=== PATIENT | female | born 1960 | race African-American/Black ===

== ENCOUNTER 2024-07-11 10:05 | Emergency (ER) | payer OTHER, SELFPAY ==
--- NOTE | ~2024-07-11 | XR_ITS ---
EXAMINATION: XR chest 2V DATE: 07/11/2024 10:48 INDICATION: Cough and shortness of breath. Rib pain. Back pain. TECHNIQUE: Frontal and lateral views of the chest were obtained. COMPARISON: None. FINDINGS: There is no pneumonia, pleural effusion, or pneumothorax. Cardiomegaly is noted. IMPRESSION: 1. Cardiomegaly. Reviewed, dictated and finalized at location A. [facility] [employer] [facility] IMPRESSION: 1. Cardiomegaly.
[2024-07-11 10:17] VITALS: BP 110/67; PULSE 84; RESP 16; TEMP 36.6; O2SAT 95
--- NOTE | 2024-07-11 11:05 | ED.URI ---
HPI - URI/Sore Throat General Chief Complaint: Upper Respiratory Infection Stated Complaint: COUGH/RIB & BACK PAIN Time Seen by Provider: 07/11/24 10:25 Source: patient Mode of arrival: ambulatory Limitations: no limitations History of Present Illness HPI Narrative: Gricelda is a 63-year-old female patient presenting to the clinic today with complaints of cough, shortness of breath, bilateral rib, and bilateral back pain that started 3-4 days ago. Has gradually gotten worse since last night. States this feels a lot like when she had pneumonia last August. MD elicited complaint: sore throat and nasal congestion Related Data Home Medications ?Medication ?Instructions ?Recorded ?Confirmed ?Last Taken ?Type losartan 100 tablet 07/11/24 Unknown History mg-hydrochlorothiazide 25 mg tablet Allergies Allergy/AdvReac Type Severity Reaction Status Date / Time Penicillins Allergy Intermediate swollen Verified 07/11/24 10:13 Review of Systems Review of Systems: Pertinent positives per HPI. Patient denies any fever, chills, rash, headache, visual changes, dizziness, chest pain, palpitations, nausea, vomiting, diarrhea, constipation, abdominal pain, or any urinary issues. PMFSH Comments At the time of my signature, I reviewed and agree with the nursing past medical, surgical, social, and family history. There is no relevant family history pertinent to the patient complaint. Exam Narrative: General: Well-developed, well nourished, in no apparent distress Head: Normocephalic, atraumatic Eyes: Pupils equally round and reactive to light bilaterally, EOM intact, sclera and conjunctive clear, no discharge, lids normal Ears: TMs intact and clear, ear canals clear, no drainage, grossly hearing normal. Nose: Nares patent, no discharge, no inflammation, no sinus tenderness. Mouth: Oral pharynx without lesions or masses, good dentition, MMM. Neck: Supple, trachea midline, no enlargement of anterior or posterior cervical nodes, no thyroid masses or goiter palpable. Cardio: Regular rate and rhythm, s1 and s2 normal, no murmur appreciated. Resp: Diminished in the bases otherwise clear, no rhonchi, rales, wheezing or rubs Extremities: No deformity, no edema, no cyanosis, capillary refill less than 2 seconds, peripheral pulses palpable and strong. Integumentary: [place], warm, and dry, intact without lesion, no rashes. Course Course Emergency Course: Portions of this record may have been created with voice recognition software. Level of Care: Express Care Visit Vital Signs Vital signs: Vital Signs Temperature 36.6 C 07/11/24 10:17 Pulse Rate 84 07/11/24 10:17 Respiratory Rate 16 07/11/24 10:17 Blood Pressure 110/67 07/11/24 10:17 Pulse Oximetry 95 07/11/24 10:17 Temperature 36.6 C 07/11/24 10:17 Pulse Rate 84 07/11/24 10:17 Respiratory Rate 16 07/11/24 10:17 Blood Pressure 110/67 07/11/24 10:17 Pulse Oximetry 95 07/11/24 10:17 Vital signs reviewed MDM - URI/Sore Throat MDM Narrative Medical decision making narrative: At the time of visit patient is resting comfortably on the exam table. Patient appears to be nontoxic. EKG: EKG shows normal sinus rhythm with heart rate of 74 beats per minute without ST elevation, depression, or T-wave inversion. Diagnostics: Chest x-ray shows cardiomegaly without sign pleural effusion or pneumonia. Plan: I suspect patient has bronchitis. Discussed cardiomegaly and will have the patient follow-up with her primary care doctor. Prescription for prednisone and albuterol inhaler was sent to the pharmacy. Supportive measures were discussed with the patient and they voiced understanding discharge instructions and agrees to treatment plan. Return precautions reviewed Differential Diagnosis Differential diagnosis: Likely upper respiratory infection, otitis media, sinusitis, viral infection, bronchitis, influenza, pharyngitis and other (COVID, pneumonia) Imaging Data Radiologist's impression: ITS Impressions Chest X-Ray 07/11/24 10:49 IMPRESSION: 1. Cardiomegaly. ECG Data EKG #1: Attestation: I personally reviewed and interpreted this ECG as follows: ECG completion date: 07/11/24 ECG completion time: 11:15 Interpretation: EKG shows normal sinus rhythm with heart rate of 74 beats per minute without ST elevation, depression, or T-wave inversion. [place] interval is 143 milliseconds, QRS durations 97 milliseconds, QT-QTC is 421-448 milliseconds, P-R-T axis is 47 29 57 Discharge Plan Discharge Clinical Impression: Bronchitis Patient Disposition: Home, Self-Care Condition: Stable Instructions: Antibiotic Form, Acute Bronchitis (ED) Additional Instructions: Chest x-ray shows some cardiomegaly however no sign of pneumonia EKG is normal sinus rhythm with heart rate of 74 beats per minute. No sign of ST elevation or depression. No ST changes Take prescription medications only as prescribed-albuterol inhaler and prednisone Increase fluids and stay well hydrated Tylenol/motrin for pain/fever Flonase and OTC antihistamines as directed Vicks vapor rub to open sinuses Sinus rinses for congestion Cepacol spray, cough drops, throat lozenges, warm tea with honey/lemon, gargle salt water to soothe throat BRAT diet for diarrhea Clear liquids x 24 hours then advance as tolerated for nausea/vomiting Go to the ED if you develop a worsening in your condition- high fever not controlled by Tylenol or Motrin, dehydration, weakness, lethargy, shortness of breath, or chest pain. Follow up with your PCP in 3-5 days if symptoms persist. Recommend follow-up with your doctor in regards to cardiomegaly. Patient Language: Wolof Prescriptions: New prednisone 20 mg tablet 40 mg PO DAILY 5 Days Qty: 10 0RF albuterol sulfate 90 mcg/actuation HFA aerosol inhaler 2 puff inhalation Q4-6H PRN (Reason: shortness of breath or wheezing) 30 Days Qty: 8.5 0RF No Action losartan-hydrochlorothiazide 100-25 mg tablet Follow-up/Referrals: Greg,MD Gene [Primary Care Provider] - Time of Disposition: 11:23 Quality NIHSS Nursing Documentation ED NIHSS nursing documentation: reviewed/agree
--- NOTE | 2024-07-11 11:06 | ECG_ITS ---
Test Date: 2024-07-11 11:15:04 Measurements Intervals [place] Rate: 74 P: 47 WY: 143 QRS: 29 QRSD: 97 T: 57 QT: 421 QTc: 467 Interpretive Statements SINUS RHYTHM No previous ECG available for comparison Electronically Signed On 07-11-2024 14:48:14 [employer]CIAL [employer]OUNTANT by Christa Luciano M.D.
== END 2024-07-11 11:28 | disposition home or self-care (01) ==
PROVIDERS: Emergency Provider Nurse Practitioner Family; PCP Family Medicine
DX: J40 Bronchitis, not specified as acute or chronic (principal)
CPT/HCPCS: 71046; 93005; 99213; G0463

== ENCOUNTER 2024-10-17 08:39 | Emergency (ER) | payer OTHER, SELFPAY ==
[2024-10-17 08:51] VITALS: BP 129/73; PULSE 105; RESP 18; TEMP 37.2; O2SAT 99
--- NOTE | 2024-10-17 09:23 | ED.NAVMDI ---
HPI - Nausea/Vomiting/Diarrhea General Chief complaint: Nausea/Vomiting/Diarrhea Stated complaint: VOMITING/DIARRHEA/ABD CRAMPS Time Seen by Provider: 10/17/24 09:11 Source: patient and RN notes reviewed Mode of arrival: ambulatory Limitations: no limitations History of Present Illness HPI Narrative: 63-year-old female presents to the [facility] today complained of nausea, vomiting, diarrhea. She reports her symptoms started in the middle of the night felt intense abdominal cramping followed by nausea, vomiting and diarrhea. She reports she has been vomiting and having diarrhea since. She reports that she ate [place] food at a new restaurant that she never ate before and felt some abdominal discomfort before going to bed. She takes mounjaro for weight loss. She said she was due for her next dose today but did not take it since she is having these symptoms. She has been trying to drink fluids but unable to keep anything down. She denies any fevers, chills, body aches. Related Data Home Medications ?Medication ?Instructions ?Recorded ?Confirmed ?Last Taken ?Type losartan 100 tablet 07/11/24 Unknown History mg-hydrochlorothiazide 25 mg tablet ergocalciferol (vitamin D2) 1,250 10/17/24 Unknown History mcg (50,000 unit) capsule ezetimibe 10 mg tablet mg 10/17/24 Unknown History rosuvastatin 40 mg tablet mg 10/17/24 Unknown History tirzepatide (weight loss) 5 mg/0.5 mg subcut 10/17/24 Unknown History mL subcutaneous pen injector (Zepbound) tretinoin 0.025 % topical cream applic topical 10/17/24 Unknown History Allergies Allergy/AdvReac Type Severity Reaction Status Date / Time Penicillins Allergy Intermediate swollen Verified 10/17/24 08:42 Review of Systems Review of Systems: CONSTITUTIONAL: Denies fever, chills, or sweats. EYES: Denies visual changes, redness, or discharge. ENT: Denies rhinorrhea, congestion, sore throat, or otalgia. CARDIOVASCULAR: Denies chest pain, palpitations, or edema. RESPIRATORY: Denies cough or dyspnea. GASTROINTESTINAL: Positive for abdominal cramping, nausea, vomiting, or diarrhea. GENITOURINARY: Denies dysuria or hematuria. SKIN: Denies rash or itching. MUSCULOSKELETAL: Denies back pain, joint pain, or myalgia. NEUROLOGIC: Denies headache, numbness, or weakness. PSYCHIATRIC: Denies anxiety or depression. All other systems reviewed are negative, except as documented in HPI. PMFSH Comments At the time of my signature, I reviewed and agree with the nursing past medical, surgical, social, and family history. There is no relevant family history pertinent to the patient complaint. Exam Narrative: GENERAL: This is a well-nourished, well-developed patient, in no apparent distress. HEAD: normocephalic, atraumatic. EYES: Sclera clear/white. Vision is grossly intact. NECK: Neck supple, non-tender without lymphadenopathy, masses or thyromegaly. CARDIOVASCULAR: Regular rate and rhythm without murmurs, gallops, or rubs. RESPIRATORY: Clear to auscultation. Breath sounds equal bilaterally. No wheezes, rales, or rhonchi. GASTROINTESTINAL: Abdomen soft, Tender to palpation to the epigastric region, nondistended. Bowel sounds are active. No hepato-splenomegaly, or palpable masses. No guarding. SKIN: warm, Dry, intact with no suspicious lesions or rash, good texture and turgor. NEURO: awake, alert, and oriented to person, place and time. There were no obvious focal neurologic abnormalities. EXTREMITIES: No joint tenderness, effusion, or edema noted. BACK: Nontender without deformity. No CVA tenderness. Course Course Level of Care: Express Care Visit Vital Signs Vital signs: Vital Signs Temperature 98.9 F 10/17/24 08:51 Pulse Rate 105 H 10/17/24 08:51 Respiratory Rate 18 10/17/24 08:51 Blood Pressure 129/73 10/17/24 08:51 Pulse Oximetry 99 10/17/24 08:51 Temperature 98.9 F 10/17/24 08:51 Pulse Rate 105 H 10/17/24 08:51 Respiratory Rate 18 10/17/24 08:51 Blood Pressure 129/73 10/17/24 08:51 Pulse Oximetry 99 10/17/24 08:51 reviewed MDM - Nausea/Vomiting/Diarrhea MDM Narrative Medical decision making narrative: Symptoms are likely from gastroenteritis which could potentially be from the [place] food that she ate last night. Supportive therapy is recommended, she is nontoxic appearing, non ill-appearing, abdominal exam without peritoneal findings. Will give her prescription for Zofran and advised her to use [id number] Pepto or Imodium for diarrhea. Anticipatory guidance given, strict ED precautions discussed. Differential Diagnosis Differential diagnosis: Likely food poisoning, gastroenteritis and drug-induced nausea and vomiting Critical Care Time Critical Care Time Critical Care Time: No Discharge Plan Discharge Clinical Impression: Nausea vomiting and diarrhea Patient Disposition: Home, Self-Care Condition: Stable Instructions: Gastroenteritis (DC) Additional Instructions: Stay hydrated. Take small sips of fluid containing electrolytes frequently.Clear liquids (broth, jello, tea, sprite, pedialyte) [place] foods (bananas, rice, applesauce, toast, crackers) Avoid fatty, greasy, fried or spicy foods. ?Limit dairy until symptoms are improved. [id number] Imodium according to package directions Recommend probiotic such as align or lactobacillus to help with symptoms. You should go to the hospital if you experience persistent nausea and vomiting that does not resolve and does not allow you to tolerate any food or fluids, ?fevers, increasing abdominal pain, persistent diarrhea, dizziness, fainting, or for any other concerns. Follow up with primary care provider in 3 days. Patient Language: Icelandic Prescriptions: New ondansetron 4 mg tablet,disintegrating 4 mg PO Q6H PRN (Reason: nausea and vomiting) Qty: 20 0RF No Action losartan-hydrochlorothiazide 100-25 mg tablet albuterol sulfate 90 mcg/actuation HFA aerosol inhaler 2 puff inhalation Q4-6H PRN (Reason: shortness of breath or wheezing) 30 Days Qty: 8.5 0RF tretinoin 0.025 % cream TOPICAL ergocalciferol (vitamin D2) 1,250 mcg (50,000 unit) capsule ezetimibe 10 mg tablet rosuvastatin 40 mg tablet Zepbound 5 mg/0.5 mL pen injector SUBCUT Follow-up/Referrals: Greg,MD Gene [Primary Care Provider] - Stand Alone Forms: Work/School Release IP Time of Disposition: 09:25
== END 2024-10-17 09:31 | disposition home or self-care (01) ==
PROVIDERS: PCP Family Medicine
DX: R11.2 Nausea with vomiting, unspecified (principal); R19.7 Diarrhea, unspecified; I10 Essential (primary) hypertension; E78.00 Pure hypercholesterolemia, unspecified
CPT/HCPCS: 99213; G0463